=== PATIENT | female | born 1990 | race Two or more races ===

== ENCOUNTER 2023-07-22 09:45 | Outpatient (RCR) | payer OTHER, SELFPAY | END 2023-07-22 13:24 | disposition home or self-care (01) | LOC: HO.PHPA 09:45 | PROVIDERS: Visit Provider Psychiatry & Neurology Psychiatry | DX: F43.10 Post-traumatic stress disorder, unspecified (principal); F90.9 Attention-deficit hyperactivity disorder, unspecified type; F39 Unspecified mood [affective] disorder ==